=== PATIENT | female | born 1980 | race Asian ===

== ENCOUNTER 2016-08-19 05:00 | Inpatient (IN) | payer SELFPAY ==
[2016-08-18 17:10] LABS: BASOPHILS % (AUTO) 0.3 % (0.0-2.0); EOSINOPHILS # (AUTO) 0.1 K/uL (0.0-0.4); EOSINOPHILS % (AUTO) 1.6 % (0.0-4.0); HEMATOCRIT 36.2 % (36-48); HEMOGLOBIN 12.4 g/dL (12.0-16.0); LYMPHOCYTES # (AUTO) 1.8 K/uL (1.0-5.5); LYMPHOCYTES % (AUTO) 28.8 % (20.5-51.5); MEAN CORPUSCULAR HEMOGLOBIN 30 pg (27-31); MEAN CORPUSCULAR HGB CONC 34 % (32-36); MEAN CORPUSCULAR VOLUME 88 fL (79.0-98.0); MONOCYTES # (AUTO) 0.3 K/uL (0.0-1.0); MONOCYTES % (AUTO) 4.8 % (1.7-9.3); NEUTROPHILS # (AUTO) 4.1 K/uL (1.8-7.7); NEUTROPHILS % (AUTO) 64.5 % (40.0-70.0); PLATELET COUNT (AUTO) 202 K/uL (130-430); RED BLOOD CELL COUNT(AUTO) 4.11 MIL/uL (4.2-6.2); RED CELL DISTRIBUTION WIDTH 13.8 % (9.0-15.0); WHITE BLOOD COUNT (AUTO) 6.3 K/uL (4.8-10.8)
[2016-08-18 17:17] LABS: BILIRUBIN,URINE NEGATIVE (NEGATIVE); BLOOD, URINE NEGATIVE (NEGATIVE); CLARITY/URINE CLEAR (CLEAR); COLOR,URINE YELLOW (YELLOW); GLUCOSE,URINE NEGATIVE (NEGATIVE); KETONES,URINE NEGATIVE (NEGATIVE); LEUKOCYTE ESTERASE ,URINE NEGATIVE (NEGATIVE); NITRITE, URINE NEGATIVE (NEGATIVE); PROTEIN URINE NEGATIVE (NEGATIVE); UROBILINOGEN,URINE 0.2 (0.2-1.0)
[~2016-08-19] VITALS: Ht 162 cm; Wt 67.6 kg
[2016-08-19] MEDS ORDERED: LR 1,000 ML IV SCH ×2 (06:25→08:14)
[2016-08-19] MEDS ORDERED: CITRIC ACID/SODIUM CITRATE 30 ML UDC PO ONE (07:00)
[2016-08-19] MEDS ORDERED: CEFAZOLIN 2 GM IVPB PREMIX 50 ML IV ONE ×2 (07:00→14:00)
[2016-08-19] MEDS ORDERED: OXYTOCIN/NORMAL SALINE 1,000 ML IV ONE (07:29)
[2016-08-19] MEDS ORDERED: HYDROcodone/ACETAMIN 5-325 MG TAB (NORCO/ VICODIN) PO PRN (07:30)
[2016-08-19] MEDS ORDERED: OXYCODONE/ACETAMINOPHEN 5-325 TABLET PO PRN (07:30)
[2016-08-19] MEDS ORDERED: MEASLES,MUMPS&RUBELLA VACC/PF 12500 UNIT/0.5 ML VIAL SUBQ PRN (07:30)
[2016-08-19] MEDS ORDERED: ANUSOL 1 EA SUPP.RECT (PREPARATION H) RC PRN (07:30)
[2016-08-19] MEDS ORDERED: LANOLIN 7 GM OINT. TP PRN (07:30)
[2016-08-19] MEDS ORDERED: METOCLOPRAMIDE HCL 10 MG/2 ML VIAL IVP PRN (08:15)
[2016-08-19] MEDS ORDERED: MORPHINE SULFATE 10MG/10ML PF AMP SP SCH (08:15)
[2016-08-19] MEDS ORDERED: NALOXONE HCL 0.4 MG/ML AMP (NARCAN) IVP PRN (08:15)
[2016-08-19] MEDS ORDERED: MEPERIDINE HCL/PF 50 MG/ML AMP IVP PRN ×2 (08:15)
[2016-08-19] MEDS ORDERED: ONDANSETRON HCL 4 MG/2 ML VIAL IVP PRN (08:15)
[2016-08-19] MEDS ORDERED: MEPERIDINE HCL/PF 25 MG/ML DISP.SYRIN IVP PRN (08:15)
[2016-08-19] MEDS ORDERED: KETOROLAC TROMETHAMINE 60 MG/2 ML VIAL IM PRN (08:15)
[2016-08-19] MEDS ORDERED: DIPHENHYDRAMINE INJ 50 MG/ML VIAL IM PRN (08:15)
[2016-08-19 08:35] VITALS: BP 110/68
[2016-08-19] MEDS: CEFAZOLIN 1 GM IVPB PREMIX 50 ML IV SCH ×3 (12:01→23:44)
[2016-08-19] MEDS ORDERED: MORPHINE SULFATE 10MG/10ML PF AMP ONE (14:00)
[2016-08-19] MEDS ORDERED: ONDANSETRON HCL 4 MG/2 ML VIAL ONE (14:00)
[2016-08-19] MEDS ORDERED: ePHEDrine sulfate 50 MG/ML VIAL ONE (14:00)
[2016-08-19] MEDS ORDERED: LR 1,000 ML IV.SOLN IV ONE (14:00)
[2016-08-19] MEDS ORDERED: METHYLERGONOVINE MALEATE 0.2 MG/ML AMP ONE (14:00)
[2016-08-19] MEDS ORDERED: MIDAZOLAM HCL 5 MG/5 ML VIAL ONE (14:00)
[2016-08-19] MEDS ORDERED: NS IRRIG SOLN 1000 ML IR ONE (14:00)
[2016-08-19] MEDS ORDERED: TEMAZEPAM 15 MG CAPSULE PO PRN (21:00)
[2016-08-20] MEDS: IBUPROFEN 600 MG TABLET PO SCH ×3 (05:57→18:29)
[2016-08-20] MEDS: SIMETHICONE 80 MG TAB.CHEW PO PRN (05:57)
[2016-08-20 08:00] LABS: BASOPHILS % (AUTO) 0.2 % (0.0-2.0); EOSINOPHILS # (AUTO) 0.1 K/uL (0.0-0.4); EOSINOPHILS % (AUTO) 0.7 % (0.0-4.0); HEMATOCRIT 33.2 % (36-48); HEMOGLOBIN 11.2 g/dL (12.0-16.0); LYMPHOCYTES # (AUTO) 1.5 K/uL (1.0-5.5); LYMPHOCYTES % (AUTO) 14.8 % (20.5-51.5); MEAN CORPUSCULAR HEMOGLOBIN 30 pg (27-31); MEAN CORPUSCULAR HGB CONC 34 % (32-36); MEAN CORPUSCULAR VOLUME 89 fL (79.0-98.0); MONOCYTES # (AUTO) 0.3 K/uL (0.0-1.0); NEUTROPHILS # (AUTO) 8.4 K/uL (1.8-7.7); NEUTROPHILS % (AUTO) 81.3 % (40.0-70.0); PLATELET COUNT (AUTO) 186 K/uL (130-430); RED BLOOD CELL COUNT(AUTO) 3.75 MIL/uL (4.2-6.2); RED CELL DISTRIBUTION WIDTH 13.8 % (9.0-15.0); WHITE BLOOD COUNT (AUTO) 10.3 K/uL (4.8-10.8)
[2016-08-20] MEDS: OXYCODONE/ACETAMINOPHEN 5-325 TABLET PO PRN ×2 (13:41→18:30)
[2016-08-20] MEDS: DOCUSATE SODIUM 100 MG CAPSULE PO PRN (13:41)
[2016-08-21] MEDS: IBUPROFEN 600 MG TABLET PO SCH ×5 (00:01→23:47)
[2016-08-21] MEDS: SIMETHICONE 80 MG TAB.CHEW PO PRN (12:26)
[2016-08-21] MEDS: DOCUSATE SODIUM 100 MG CAPSULE PO PRN (12:26)
[2016-08-21] MEDS: OXYCODONE/ACETAMINOPHEN 5-325 TABLET PO PRN (14:46)
[2016-08-22] MEDS: IBUPROFEN 600 MG TABLET PO SCH ×2 (05:54→12:49)
[2016-08-22] MEDS: DOCUSATE SODIUM 100 MG CAPSULE PO PRN (12:49)
[2016-08-22] MEDS: SIMETHICONE 80 MG TAB.CHEW PO PRN (12:49)
== END 2016-08-22 13:55 | disposition home or self-care (01) | DRG 766 ==
LOC: SPU 05:00
PROVIDERS: ADMIT Obstetrics & Gynecology; ATTEND Obstetrics & Gynecology
PROC: 10D00Z1 Extraction of Products of Conception, Low, Open Approach (ICD-10-PCS; principal; 2016-08-21)
DX: O32.1XX0 Maternal care for breech presentation, not applicable or unspecified (principal); Z37.0 Single live birth; Z3A.39 39 weeks gestation of pregnancy
CPT/HCPCS: 36415; 81003; 85025; 86886; 86900; 86901; 94760; J0690; J2210; J2250; J2274; J2405; J2590; J7120